=== PATIENT | female | born 1940 | race Caucasian/White ===

== ENCOUNTER 2016-12-29 09:34 | Observation (INO) | payer OTHER ==
[~2016-12-29] VITALS: Ht 152.4 cm; Wt 72.5 kg
[~2016-12-29 09:34] MED LIST: AMOX TR-K CLV1 EAC4 PO; CIPRO500 MG PO; NEXIUM40 MG PO; PRAVACHOL40 MG PO; PREDNISONE10 MG PO; PROBIOTIC1 EAC1 PO; PROVENTIL,2.5 MG/0.5 IH; SYNTHROID PO; TIROSINT75 MCG PO; ZOFRAN ODT4 MG PO
[2016-12-29 10:44] LABS: EOSINOPHIL (%) 2.5 % (0-5); EOSINOPHIL COUNT 0.1 K/uL (0-0.3); HEMATOCRIT 37.2 % (36.0-46.0); IMMATURE GRANULOCYTE (%) 0.4 % (0.0-0.7); INSTRUMENT ABS NEUTROPHIL CT 3.5 K/uL; LYMPHOCYTE COUNT 1.5 K/uL (1.0-2.8); MCHC 32.8 G/DL (30.0-36.0); MCV 94.7 FL (83-99); MEAN PLAT.VOLUME 10.1 uM^3 (9.5-12.4); MONOCYTE (%) 6.7 % (3-12); MONOCYTE COUNT 0.4 K/uL (0-0.8); NEUTROPHIL (%) 62.3 % (45-76); NEUTROPHIL COUNT 3.5 K/uL (1.8-6.4); PLATELET COUNT 197 K/uL (156-360); RBC DIS.WIDTH-CV 12.5 % (11.8-14.6); RBC DIS.WIDTH-SD 44.1 % (39-53); RED BLOOD COUNT 3.93 M/uL (3.80-5.20); WHITE BLOOD COUNT 5.6 K/uL (4.1-10.2)
[2016-12-29 10:52] LABS: CHLORIDE 111 mEq/L (99-109); POTASSIUM 3.9 mEq/L (3.7-5.4); SODIUM 141 mEq/L (136-147)
[2016-12-29 10:54] LABS: GLUCOSE 115 mg/dL (70-99)
[2016-12-29 10:55] LABS: ANION GAP 10 MEQ/L (2-14)
[2016-12-29 10:58] LABS: GFR ESTIMATE (CALCULATED) 57 mL/min/; UREA NITROGEN (BUN) 23 mg/dL (9-23)
[2016-12-29 11:06] LABS: TROP-I INTERPRETATION NEGATIVE; TROPONIN-I < 0.01 ng/mL (0.0-0.30)
[2016-12-29 13:32] LABS: TROP-I INTERPRETATION NEGATIVE; TROPONIN-I < 0.01 ng/mL (0.0-0.30)
[2016-12-29] MEDS ORDERED: LEVO-T100 MCG PO (15:56)
[2016-12-29] MEDS ORDERED: NEXIUM40 MG PO (15:56)
[2016-12-29] MEDS ORDERED: PRAVACHOL40 MG PO (15:56)
[2016-12-29] MEDS ORDERED: HYZAAR 100-11 TABLET PO (15:57)
[2016-12-29] MEDS ORDERED: PRESERVISION T1 EACH PO (15:58)
[2016-12-29] MEDS ORDERED: VITAMIN B122500 MCG PO (15:58)
[2016-12-29] MEDS ORDERED: VITAMIN D2000 UNI1 PO (15:59)
[2016-12-29 16:06] VITALS: BP 110/59
[2016-12-29] MEDS ORDERED: PROAIR HFA8.5 GM IH (16:06)
[2016-12-29 19:25] VITALS: BP 107/63
[2016-12-30 00:04] VITALS: BP 112/72
[2016-12-30 02:11] LABS: TROP-I INTERPRETATION NEGATIVE; TROPONIN-I < 0.01 ng/mL (0.0-0.30)
[2016-12-30 04:47] VITALS: BP 104/62
[2016-12-30 06:05] LABS: HEMATOCRIT 36.3 % (36.0-46.0); MCH 30.8 PG (29.0-34.0); MCHC 32.5 G/DL (30.0-36.0); MCV 94.8 FL (83-99); MEAN PLAT.VOLUME 10.5 uM^3 (9.5-12.4); PLATELET COUNT 188 K/uL (156-360); RBC DIS.WIDTH-CV 12.8 % (11.8-14.6); RED BLOOD COUNT 3.83 M/uL (3.80-5.20); WHITE BLOOD COUNT 5.4 K/uL (4.1-10.2)
[2016-12-30 06:27] LABS: ANION GAP 8 MEQ/L (2-14); CHLORIDE 109 MEQ/L (99-109); GFR ESTIMATE (CALCULATED) > 59 mL/min/; GLUCOSE 106 mg/dL (70-99); POTASSIUM 3.8 MEQ/L (3.7-5.4); SAMPLE HEMOLYSIS CHECK 0; SAMPLE ICTERIC CHECK 0; SAMPLE LIPEMIA CHECK 0; SODIUM 140 MEQ/L (136-147); UREA NITROGEN (BUN) 21 mg/dL (9-23)
[2016-12-30 08:23] VITALS: BP 127/73
[2016-12-30 11:27] VITALS: BP 106/77
== END 2016-12-30 16:00 | disposition home or self-care (01) ==
LOC: EME 09:34 → EDOF 14:57 → 5WEST 15:55
PROVIDERS: Emergency Medicine; Hospitalist; Internal Medicine
DX: R07.9 Chest pain, unspecified (principal); E78.5 Hyperlipidemia, unspecified; J45.909 Unspecified asthma, uncomplicated; I25.2 Old myocardial infarction; R42 Dizziness and giddiness; I10 Essential (primary) hypertension; Z96.651 Presence of right artificial knee joint; R00.1 Bradycardia, unspecified
CPT/HCPCS: 71010; 80048; 84484; 85025; 85027; 93005; 99281; 99285; G0378; J1650

== ENCOUNTER 2018-01-02 01:09 | Inpatient (IN) | payer OTHER ==
[~2018-01-02] VITALS: Ht 149.9 cm; Wt 68.4 kg
[~2018-01-02 01:09] MED LIST changes: +HYZAAR 100-11 TABLET PO; +LEVO-T100 MCG PO; +PRESERVISION T1 EACH PO; +PROAIR HFA8.5 GM IH; +VITAMIN B122500 MCG PO; +VITAMIN D2000 UNI1 PO
[2018-01-02 02:12] LABS: CHLORIDE 108 mEq/L (99-109); POTASSIUM 3.6 mEq/L (3.7-5.4); SODIUM 139 mEq/L (136-147)
[2018-01-02 02:14] LABS: GLUCOSE 134 mg/dL (70-99); TOTAL PROTEIN 6.4 g/dL (6.4-8.3)
[2018-01-02 02:16] LABS: TOTAL BILIRUBIN 0.8 mg/dL (0.0-1.0)
[2018-01-02 02:17] LABS: ALKALINE PHOSPHATASE 87 IU/L (3-129)
[2018-01-02 02:18] LABS: CREATININE 1.2 mg/dL (0.6-1.3); GFR ESTIMATE (CALCULATED) 46 mL/min/
[2018-01-02 02:19] LABS: AST (GOT) 168 IU/L (2-34); UREA NITROGEN (BUN) 37 mg/dL (9-23)
[2018-01-02 02:20] LABS: ALT (GPT) 69 IU/L (3-49)
[2018-01-02 02:21] LABS: LIPASE 36 U/L (1.0-51.0)
[2018-01-02 02:22] LABS: TROP-I INTERPRETATION NEGATIVE; TROPONIN-I < 0.01 ng/mL (0.0-0.30)
[2018-01-02 03:41] LABS: BASOPHIL (%) 0.5 % (0-1); EOSINOPHIL (%) 1.6 % (0-5); EOSINOPHIL COUNT 0.1 K/uL (0-0.3); HEMATOCRIT 36.5 % (36.0-46.0); HEMOGLOBIN 12.1 G/DL (11.9-15.5); IMMATURE GRANULOCYTE (%) 0.6 % (0.0-0.7); LYMPHOCYTE (%) 21.4 % (15-42); LYMPHOCYTE COUNT 1.4 K/uL (1.0-2.8); MCH 32.1 PG (29.0-34.0); MCHC 33.2 G/DL (30.0-36.0); MCV 96.8 FL (83-99); MONOCYTE (%) 6.8 % (3-12); MONOCYTE COUNT 0.4 K/uL (0-0.8); NEUTROPHIL (%) 69.1 % (45-76); NEUTROPHIL COUNT 4.4 K/uL (1.8-6.4); PLATELET COUNT 201 K/uL (156-360); RBC DIS.WIDTH-CV 13.1 % (11.8-14.6); RBC DIS.WIDTH-SD 46.5 % (39-53); RED BLOOD COUNT 3.77 M/uL (3.80-5.20); WHITE BLOOD COUNT 6.4 K/uL (4.1-10.2)
[2018-01-02 04:02] LABS: APPEARANCE CLEAR ((CLEAR)); BILIRUBIN NEGATIVE; BLOOD NEGATIVE; COLOR YELLOW ((YELLOW)); GLUCOSE (STRIP) NEGATIVE; KETONES NEGATIVE; LEUKOCYTES MODERATE; NITRITE NEGATIVE; PROTEIN (STRIP) NEGATIVE; SPECIFIC GRAVITY 1.011 (1.000-1.030); UROBILINOGEN 0.2 MG/DL (0.2-1.0)
[2018-01-02 04:08] LABS: BACTERIA 1+ /HPF; EPITHELIAL CELLS RARE /HPF; HYALINE CASTS 0-5 /LPF; MUCUS NONE SEEN /LPF; RED BLOOD CELLS 0-5 /HPF (0-5); UCUL ADDED? YES
[2018-01-02] MEDS ORDERED: FOSAMAX70 MG PO (07:39)
[2018-01-02] MEDS ORDERED: SYNTHROID75 MCG PO (07:39)
[2018-01-02] MEDS ORDERED: ERGOCALCIF50000 UNIT PO (07:39)
[2018-01-02] MEDS ORDERED: VITAMIN D-3 401 EACH PO (07:40)
[2018-01-02] MEDS ORDERED: ALEVE220 MG PO (07:40)
[2018-01-02] MEDS ORDERED: BENADRYL ALLERG25 MG PO (07:40)
[2018-01-02 09:37] LABS: ALBUMIN 3.6 g/dL (3.2-4.8); CHLORIDE 111 mEq/L (99-109); SODIUM 140 mEq/L (136-147)
[2018-01-02 09:38] LABS: POTASSIUM 4.5 mEq/L (3.7-5.4)
[2018-01-02 09:39] LABS: GLUCOSE 105 mg/dL (70-99); TOTAL PROTEIN 5.7 g/dL (6.4-8.3)
[2018-01-02 09:41] LABS: TOTAL BILIRUBIN 0.9 mg/dL (0.0-1.0)
[2018-01-02 09:43] LABS: ALKALINE PHOSPHATASE 96 IU/L (3-129); GFR ESTIMATE (CALCULATED) 57 mL/min/
[2018-01-02 09:44] LABS: UREA NITROGEN (BUN) 29 mg/dL (9-23)
[2018-01-02 09:45] LABS: AST (GOT) 169 IU/L (2-34)
[2018-01-02 09:46] LABS: ALT (GPT) 120 IU/L (3-49); TROP-I INTERPRETATION NEGATIVE; TROPONIN-I < 0.01 ng/mL (0.0-0.30)
[2018-01-02 12:38] LABS: TROP-I INTERPRETATION NEGATIVE; TROPONIN-I < 0.01 ng/mL (0.0-0.30)
[2018-01-02 15:51] VITALS: BP 113/60
[2018-01-02 16:02] LABS: BASOPHIL (%) 0.7 % (0-1); EOSINOPHIL (%) 3.4 % (0-5); EOSINOPHIL COUNT 0.1 K/uL (0-0.3); HEMATOCRIT 34.6 % (36.0-46.0); HEMOGLOBIN 11.2 G/DL (11.9-15.5); IMMATURE GRANULOCYTE (%) 0.2 % (0.0-0.7); LYMPHOCYTE (%) 33.5 % (15-42); LYMPHOCYTE COUNT 1.4 K/uL (1.0-2.8); MCH 31.7 PG (29.0-34.0); MCHC 32.4 G/DL (30.0-36.0); MONOCYTE (%) 11.4 % (3-12); MONOCYTE COUNT 0.5 K/uL (0-0.8); NEUTROPHIL (%) 50.8 % (45-76); NEUTROPHIL COUNT 2.1 K/uL (1.8-6.4); PLATELET COUNT 191 K/uL (156-360); RBC DIS.WIDTH-CV 13.2 % (11.8-14.6); RBC DIS.WIDTH-SD 47.1 % (39-53); RED BLOOD COUNT 3.53 M/uL (3.80-5.20); WHITE BLOOD COUNT 4.1 K/uL (4.1-10.2)
[2018-01-02 16:16] LABS: INTER. NORMALIZED RATIO 1.2
[2018-01-02 16:19] LABS: PTT 28.1 SEC (25-37)
[2018-01-02 16:22] LABS: TROP-I INTERPRETATION NEGATIVE; TROPONIN-I < 0.01 ng/mL (0.0-0.30)
[2018-01-02 16:24] LABS: CHLORIDE 111 MEQ/L (99-109); GFR ESTIMATE (CALCULATED) 57 mL/min/; GLUCOSE 90 mg/dL (70-99); SODIUM 140 MEQ/L (136-147); UREA NITROGEN (BUN) 27 mg/dL (9-23)
[2018-01-02 19:16] VITALS: BP 90/53
[2018-01-02 19:32] VITALS: BP 98/53
[2018-01-02 23:26] VITALS: BP 115/63
[2018-01-03 03:59] VITALS: BP 115/56
[2018-01-03 05:30] LABS: HEMATOCRIT 34.1 % (36.0-46.0); MCH 31.7 PG (29.0-34.0); MCHC 32.3 G/DL (30.0-36.0); MCV 98.3 FL (83-99); PLATELET COUNT 181 K/uL (156-360); RBC DIS.WIDTH-CV 13.2 % (11.8-14.6); RBC DIS.WIDTH-SD 47.1 % (39-53); RED BLOOD COUNT 3.47 M/uL (3.80-5.20); WHITE BLOOD COUNT 4.3 K/uL (4.1-10.2)
[2018-01-03 05:54] LABS: ALBUMIN 3.2 G/DL (3.2-4.8); ALKALINE PHOSPHATASE 67 IU/L (3-129); ALT (GPT) 65 IU/L (3-49); AST (GOT) 44 IU/L (2-34); CHLORIDE 109 MEQ/L (99-109); CREATININE 1.2 MG/DL (0.6-1.3); GFR ESTIMATE (CALCULATED) 46 mL/min/; GLUCOSE 98 mg/dL (70-99); POTASSIUM 4.4 MEQ/L (3.7-5.4); SODIUM 140 MEQ/L (136-147); TOTAL BILIRUBIN 0.7 MG/DL (0.0-1.0); TOTAL PROTEIN 5.5 G/DL (6.4-8.3); UREA NITROGEN (BUN) 24 mg/dL (9-23)
[2018-01-03 07:42] VITALS: BP 127/65
[2018-01-03 11:36] VITALS: BP 116/68
[2018-01-03 16:54] VITALS: BP 131/74
[2018-01-03 23:37] VITALS: BP 103/55
[2018-01-04 03:39] VITALS: BP 116/61
[2018-01-04 05:49] LABS: BASOPHIL (%) 0.8 % (0-1); EOSINOPHIL (%) 2.5 % (0-5); EOSINOPHIL COUNT 0.1 K/uL (0-0.3); HEMOGLOBIN 11.3 G/DL (11.9-15.5); IMMATURE GRANULOCYTE (%) 0.5 % (0.0-0.7); LYMPHOCYTE (%) 24.4 % (15-42); MCH 31.4 PG (29.0-34.0); MCHC 32.3 G/DL (30.0-36.0); MCV 97.2 FL (83-99); MONOCYTE (%) 9.9 % (3-12); MONOCYTE COUNT 0.4 K/uL (0-0.8); NEUTROPHIL (%) 61.9 % (45-76); NEUTROPHIL COUNT 2.4 K/uL (1.8-6.4); PLATELET COUNT 179 K/uL (156-360); RBC DIS.WIDTH-CV 12.9 % (11.8-14.6); RBC DIS.WIDTH-SD 46.6 % (39-53); WHITE BLOOD COUNT 3.9 K/uL (4.1-10.2)
[2018-01-04 06:27] LABS: ALBUMIN 3.5 G/DL (3.2-4.8); DIRECT BILIRUBIN 1.2 mg/dL (0.0-0.3); TOTAL PROTEIN 5.5 G/DL (6.4-8.3)
[2018-01-04 06:35] LABS: ALKALINE PHOSPHATASE 226 IU/L (3-129); ALT (GPT) 735 IU/L (3-49); AST (GOT) 826 IU/L (2-34); TOTAL BILIRUBIN 2.2 MG/DL (0.0-1.0)
[2018-01-04 09:38] VITALS: BP 118/56
[2018-01-04 09:53] LABS: CHLORIDE 106 MEQ/L (99-109); CREATININE 1.1 MG/DL (0.6-1.3); GFR ESTIMATE (CALCULATED) 51 mL/min/; GLUCOSE 116 mg/dL (70-99); POTASSIUM 4.3 MEQ/L (3.7-5.4); SODIUM 139 MEQ/L (136-147); UREA NITROGEN (BUN) 21 mg/dL (9-23)
[2018-01-04 11:44] VITALS: BP 127/71
[2018-01-04 15:43] VITALS: BP 142/58
[2018-01-04 18:50] VITALS: BP 124/62
[2018-01-04 23:02] VITALS: BP 126/62
[2018-01-05 03:34] VITALS: BP 124/61
[2018-01-05 05:19] LABS: HEMATOCRIT 32.9 % (36.0-46.0); HEMOGLOBIN 10.7 G/DL (11.9-15.5); MCHC 32.5 G/DL (30.0-36.0); MCV 98.5 FL (83-99); PLATELET COUNT 170 K/uL (156-360); RBC DIS.WIDTH-CV 13.2 % (11.8-14.6); RBC DIS.WIDTH-SD 46.9 % (39-53); RED BLOOD COUNT 3.34 M/uL (3.80-5.20)
[2018-01-05 06:01] LABS: ALBUMIN 3.4 G/DL (3.2-4.8); ALKALINE PHOSPHATASE 239 IU/L (3-129); ALT (GPT) 459 IU/L (3-49); CHLORIDE 111 MEQ/L (99-109); GFR ESTIMATE (CALCULATED) 57 mL/min/; GLUCOSE 95 mg/dL (70-99); MAGNESIUM 1.5 mg/dl (1.3-2.7); POTASSIUM 3.7 MEQ/L (3.7-5.4); SODIUM 142 MEQ/L (136-147); TOTAL PROTEIN 5.5 G/DL (6.4-8.3); UREA NITROGEN (BUN) 19 mg/dL (9-23)
[2018-01-05 06:03] LABS: AST (GOT) 292 IU/L (2-34); TOTAL BILIRUBIN 0.8 MG/DL (0.0-1.0)
[2018-01-05 07:43] VITALS: BP 99/55
[2018-01-05 11:27] LABS: HEPATITIS B SURFACE ANTIGEN Nonreactive; HEPATITIS C ANTIBODY Nonreactive
[2018-01-05 11:28] LABS: ANTI-HEPATITIS A VIRUS (IGM) Nonreactive
[2018-01-05 11:30] LABS: ANTI-HEPATITIS B CORE (IGM) Nonreactive
[2018-01-05 11:44] VITALS: BP 130/63
[2018-01-05 16:12] VITALS: BP 147/87
[2018-01-05 18:29] VITALS: BP 132/63
[2018-01-06] VITALS (7 sets, daily range): BP systolic 89–120; BP diastolic 48–61
[2018-01-06 09:38] LABS: BASOPHIL (%) 0.6 % (0-1); EOSINOPHIL COUNT 0.1 K/uL (0-0.3); HEMATOCRIT 35.1 % (36.0-46.0); HEMOGLOBIN 11.4 G/DL (11.9-15.5); IMMATURE GRANULOCYTE (%) 0.8 % (0.0-0.7); LYMPHOCYTE (%) 16.4 % (15-42); MCH 31.9 PG (29.0-34.0); MCHC 32.5 G/DL (30.0-36.0); MCV 98.3 FL (83-99); MONOCYTE COUNT 0.6 K/uL (0-0.8); NEUTROPHIL (%) 71.2 % (45-76); NEUTROPHIL COUNT 4.5 K/uL (1.8-6.4); PLATELET COUNT 174 K/uL (156-360); RBC DIS.WIDTH-SD 46.8 % (39-53); RED BLOOD COUNT 3.57 M/uL (3.80-5.20); WHITE BLOOD COUNT 6.3 K/uL (4.1-10.2)
[2018-01-06 10:11] LABS: ALBUMIN 3.7 G/DL (3.2-4.8); ALKALINE PHOSPHATASE 201 IU/L (3-129); ALT (GPT) 306 IU/L (3-49); CHLORIDE 108 MEQ/L (99-109); CREATININE 0.9 MG/DL (0.6-1.3); GFR ESTIMATE (CALCULATED) > 59 mL/min/; GLUCOSE 72 mg/dL (70-99); MAGNESIUM 1.5 mg/dl (1.3-2.7); POTASSIUM 3.7 MEQ/L (3.7-5.4); SODIUM 141 MEQ/L (136-147); TOTAL BILIRUBIN 0.8 MG/DL (0.0-1.0); TOTAL PROTEIN 5.7 G/DL (6.4-8.3); UREA NITROGEN (BUN) 16 mg/dL (9-23)
[2018-01-06 10:17] LABS: AST (GOT) 101 IU/L (2-34); DIRECT BILIRUBIN 0.2 mg/dL (0.0-0.3)
[2018-01-07 04:09] VITALS: BP 98/50
[2018-01-07 04:55] LABS: HEMATOCRIT 31.4 % (36.0-46.0); HEMOGLOBIN 10.5 G/DL (11.9-15.5); MCH 32.5 PG (29.0-34.0); MCHC 33.4 G/DL (30.0-36.0); MCV 97.2 FL (83-99); PLATELET COUNT 152 K/uL (156-360); RBC DIS.WIDTH-CV 13.1 % (11.8-14.6); RBC DIS.WIDTH-SD 46.7 % (39-53); RED BLOOD COUNT 3.23 M/uL (3.80-5.20); WHITE BLOOD COUNT 7.1 K/uL (4.1-10.2)
[2018-01-07 05:21] LABS: ALBUMIN 3.2 g/dL (3.2-4.8); CHLORIDE 111 mEq/L (99-109); POTASSIUM 3.8 mEq/L (3.7-5.4); SODIUM 138 mEq/L (136-147)
[2018-01-07 05:23] LABS: GLUCOSE 86 mg/dL (70-99)
[2018-01-07 05:24] LABS: TOTAL PROTEIN 5.4 g/dL (6.4-8.3)
[2018-01-07 05:27] LABS: CREATININE 0.9 mg/dL (0.6-1.3); GFR ESTIMATE (CALCULATED) > 59 mL/min/
[2018-01-07 05:28] LABS: UREA NITROGEN (BUN) 15 mg/dL (9-23)
[2018-01-07 05:31] LABS: LIPASE 30 U/L (1.0-51.0)
[2018-01-07 05:35] LABS: ALKALINE PHOSPHATASE 187 IU/L (3-129); ALT (GPT) 232 IU/L (3-49); AST (GOT) 62 IU/L (2-34)
[2018-01-07 07:33] VITALS: BP 133/57
[2018-01-07 11:17] VITALS: BP 103/66
[2018-01-07 16:46] VITALS: BP 108/72
[2018-01-07 19:15] VITALS: BP 123/60
[2018-01-08 00:13] VITALS: BP 114/58
[2018-01-08 04:22] VITALS: BP 121/58
[2018-01-08 05:18] LABS: HEMATOCRIT 31.9 % (36.0-46.0); HEMOGLOBIN 10.3 G/DL (11.9-15.5); MCH 31.4 PG (29.0-34.0); MCHC 32.3 G/DL (30.0-36.0); MCV 97.3 FL (83-99); PLATELET COUNT 148 K/uL (156-360); RBC DIS.WIDTH-CV 13.1 % (11.8-14.6); RBC DIS.WIDTH-SD 46.9 % (39-53); RED BLOOD COUNT 3.28 M/uL (3.80-5.20); WHITE BLOOD COUNT 6.5 K/uL (4.1-10.2)
[2018-01-08 05:58] LABS: ALBUMIN 3.1 G/DL (3.2-4.8); ALKALINE PHOSPHATASE 192 IU/L (3-129); ALT (GPT) 153 IU/L (3-49); CHLORIDE 111 MEQ/L (99-109); CREATININE 0.8 MG/DL (0.6-1.3); GFR ESTIMATE (CALCULATED) > 59 mL/min/; POTASSIUM 3.8 MEQ/L (3.7-5.4); SODIUM 138 MEQ/L (136-147); TOTAL PROTEIN 5.3 G/DL (6.4-8.3); UREA NITROGEN (BUN) 18 mg/dL (9-23)
[2018-01-08 06:03] LABS: AST (GOT) 46 IU/L (2-34); GLUCOSE 158 mg/dL (70-99); TOTAL BILIRUBIN 0.6 MG/DL (0.0-1.0)
[2018-01-08 07:00] VITALS: BP 126/60
[2018-01-08 16:33] VITALS: BP 128/59
[2018-01-08 19:45] VITALS: BP 107/56
[2018-01-09 00:10] VITALS: BP 112/59
[2018-01-09 03:10] VITALS: BP 105/53
[2018-01-09 05:43] LABS: HEMATOCRIT 28.5 % (36.0-46.0); HEMOGLOBIN 9.2 G/DL (11.9-15.5); MCH 31.6 PG (29.0-34.0); MCHC 32.3 G/DL (30.0-36.0); MCV 97.9 FL (83-99); PLATELET COUNT 174 K/uL (156-360); RBC DIS.WIDTH-CV 13.8 % (11.8-14.6); RBC DIS.WIDTH-SD 49.3 % (39-53); RED BLOOD COUNT 2.91 M/uL (3.80-5.20); WHITE BLOOD COUNT 9.4 K/uL (4.1-10.2)
[2018-01-09 06:04] LABS: ALBUMIN 2.2 G/DL (3.2-4.8); ALT (GPT) 112 IU/L (3-49); AST (GOT) 49 IU/L (2-34); DIRECT BILIRUBIN 0.1 mg/dL (0.0-0.3)
[2018-01-09 06:05] LABS: ALKALINE PHOSPHATASE 137 IU/L (3-129); TOTAL BILIRUBIN 0.3 MG/DL (0.0-1.0); TOTAL PROTEIN 4.2 G/DL (6.4-8.3)
[2018-01-09 07:37] LABS: CHLORIDE 114 MEQ/L (99-109); CREATININE 0.9 MG/DL (0.6-1.3); GFR ESTIMATE (CALCULATED) > 59 mL/min/; GLUCOSE 155 mg/dL (70-99); SODIUM 139 MEQ/L (136-147); UREA NITROGEN (BUN) 24 mg/dL (9-23)
[2018-01-09 07:49] VITALS: BP 127/56
[2018-01-09 11:45] VITALS: BP 102/52
[2018-01-09 18:30] VITALS: BP 105/58
[2018-01-09 20:09] VITALS: BP 108/55
[2018-01-10 00:44] VITALS: BP 108/57
[2018-01-10 07:14] LABS: HEMATOCRIT 31.6 % (36.0-46.0); HEMOGLOBIN 10.4 G/DL (11.9-15.5); MCHC 32.9 G/DL (30.0-36.0); MCV 97.2 FL (83-99); PLATELET COUNT 225 K/uL (156-360); RBC DIS.WIDTH-CV 14.2 % (11.8-14.6); RBC DIS.WIDTH-SD 50.5 % (39-53); RED BLOOD COUNT 3.25 M/uL (3.80-5.20); WHITE BLOOD COUNT 7.5 K/uL (4.1-10.2)
[2018-01-10 07:54] VITALS: BP 115/65
[2018-01-10 10:41] LABS: CHLORIDE 110 MEQ/L (99-109); CREATININE 0.9 MG/DL (0.6-1.3); GFR ESTIMATE (CALCULATED) > 59 mL/min/; GLUCOSE 141 mg/dL (70-99); SODIUM 139 MEQ/L (136-147); UREA NITROGEN (BUN) 26 mg/dL (9-23)
[2018-01-10 12:03] VITALS: BP 140/74
[2018-01-10 16:09] VITALS: BP 108/55
[2018-01-10 20:26] VITALS: BP 125/74
[2018-01-11 00:18] VITALS: BP 103/53
[2018-01-11 07:43] VITALS: BP 111/65
[2018-01-11 09:41] LABS: ALBUMIN 2.6 G/DL (3.2-4.8); CHLORIDE 109 MEQ/L (99-109); CREATININE 0.9 MG/DL (0.6-1.3); DIRECT BILIRUBIN 0.1 mg/dL (0.0-0.3); GFR ESTIMATE (CALCULATED) > 59 mL/min/; GLUCOSE 110 mg/dL (70-99); POTASSIUM 4.1 MEQ/L (3.7-5.4); SODIUM 138 MEQ/L (136-147); TOTAL PROTEIN 4.6 G/DL (6.4-8.3); UREA NITROGEN (BUN) 20 mg/dL (9-23)
[2018-01-11 09:42] LABS: ALKALINE PHOSPHATASE 448 IU/L (3-129); ALT (GPT) 449 IU/L (3-49); AST (GOT) 487 IU/L (2-34); TOTAL BILIRUBIN 0.7 MG/DL (0.0-1.0)
[2018-01-11 15:46] VITALS: BP 107/55
[2018-01-12 00:13] VITALS: BP 102/58
[2018-01-12 06:15] LABS: ALBUMIN 2.3 G/DL (3.2-4.8); ALKALINE PHOSPHATASE 402 IU/L (3-129); ALT (GPT) 388 IU/L (3-49); AST (GOT) 274 IU/L (2-34); DIRECT BILIRUBIN 0.3 mg/dL (0.0-0.3); TOTAL BILIRUBIN 0.6 MG/DL (0.0-1.0); TOTAL PROTEIN 4.5 G/DL (6.4-8.3)
[2018-01-12 08:33] VITALS: BP 106/70
[2018-01-12] MEDS ORDERED: ONDANSETRON ODT4 MG PO (11:04)
[2018-01-12] MEDS ORDERED: FENTANYL1 EAC5 TD (11:04)
== END 2018-01-12 15:00 | disposition home health service (06) | DRG 327 ==
LOC: EME 01:09 → EDOF 08:17 → 4SOUTH 08:17 → EDOF 08:17 → ENRESERV 08:19 → 4SOUTH 12:39 → ENRESERV 01-08 09:12 → 4SOUTH 01-08 09:14 → ENRESERV 01-08 10:06 → 2EAST 01-08 14:27
PROVIDERS: Emergency Medicine; Internal Medicine; Internal Medicine Gastroenterology; Physician Assistant; Physician Assistant Surgical; Specialist
PROC: 0DB68ZX Excision of Stomach, Via Natural or Artificial Opening Endoscopic, Diagnostic (ICD-10-PCS; principal; 2018-01-07)
PROC: 0DV44ZZ Restriction of Esophagogastric Junction, Percutaneous Endoscopic Approach (ICD-10-PCS; 2018-01-08)
PROC: 0DJ68ZZ Inspection of Stomach, Via Natural or Artificial Opening Endoscopic (ICD-10-PCS; 2018-01-08)
PROC: 0WQF0ZZ Repair Abdominal Wall, Open Approach (ICD-10-PCS; 2018-01-08)
PROC: 0BQT4ZZ Repair Diaphragm, Percutaneous Endoscopic Approach (ICD-10-PCS; 2018-01-08)
DX: K44.9 Diaphragmatic hernia without obstruction or gangrene (principal); N39.0 Urinary tract infection, site not specified; I69.351 Hemiplegia and hemiparesis following cerebral infarction affecting right dominant side; Z96.651 Presence of right artificial knee joint; I10 Essential (primary) hypertension; J45.909 Unspecified asthma, uncomplicated; K29.60 Other gastritis without bleeding; B96.20 Unspecified Escherichia coli [E. coli] as the cause of diseases classified elsewhere; R79.89 Other specified abnormal findings of blood chemistry; E78.5 Hyperlipidemia, unspecified; G89.29 Other chronic pain; E66.9 Obesity, unspecified; M54.9 Dorsalgia, unspecified; K21.9 Gastro-esophageal reflux disease without esophagitis; K42.9 Umbilical hernia without obstruction or gangrene; E03.9 Hypothyroidism, unspecified; M79.672 Pain in left foot; M79.671 Pain in right foot; R74.0 Nonspecific elevation of levels of transaminase and lactic acid dehydrogenase [LDH]; K86.89 Other specified diseases of pancreas; I49.3 Ventricular premature depolarization; Z91.018 Allergy to other foods; Z91.09 Other allergy status, other than to drugs and biological substances; Z82.49 Family history of ischemic heart disease and other diseases of the circulatory system; K31.7 Polyp of stomach and duodenum; Z79.899 Other long term (current) drug therapy; Z88.5 Allergy status to narcotic agent; Z90.49 Acquired absence of other specified parts of digestive tract; Z68.30 Body mass index [BMI] 30.0-30.9, adult; Z79.83 Long term (current) use of bisphosphonates
CPT/HCPCS: 71045; 71046; 74176; 74181; 74241; 80048; 80048 91; 80053; 80074; 80076; 81003; 83690; 83735; 84484; 85025; 85025 91; 85027; 85610; 85730; 87077; 87086; 87186; 88305; 88342 TC; 93005; 94640; 94799; 99281; 99285; C9113; G0378; J0131; J0330; J0610; J0690; J0696; J0780; J1100; J1170; J1644; J1940; J2405; J2710; J2920; J3010; J7030; J7050; J7643; S0028; S0074

== ENCOUNTER 2018-01-21 15:37 | Inpatient (IN) | payer OTHER ==
[~2018-01-21] VITALS: Ht 149.9 cm; Wt 71.4 kg
[~2018-01-21 15:37] MED LIST changes: +ALEVE220 MG PO; +BENADRYL ALLERG25 MG PO; +ERGOCALCIF50000 UNIT PO; +FENTANYL1 EAC5 TD; +FOSAMAX70 MG PO; +ONDANSETRON ODT4 MG PO; +SYNTHROID75 MCG PO; +VITAMIN D-3 401 EACH PO
[2018-01-21 16:27] LABS: BASOPHIL (%) 0.2 % (0-1); EOSINOPHIL (%) 0.2 % (0-5); HEMATOCRIT 31.2 % (36.0-46.0); HEMOGLOBIN 10.4 G/DL (11.9-15.5); IMMATURE GRANULOCYTE (%) 0.6 % (0.0-0.7); LYMPHOCYTE (%) 3.2 % (15-42); LYMPHOCYTE COUNT 0.5 K/uL (1.0-2.8); MCH 32.3 PG (29.0-34.0); MCHC 33.3 G/DL (30.0-36.0); MCV 96.9 FL (83-99); MONOCYTE (%) 2.3 % (3-12); MONOCYTE COUNT 0.4 K/uL (0-0.8); NEUTROPHIL (%) 93.5 % (45-76); NEUTROPHIL COUNT 15.3 K/uL (1.8-6.4); RBC DIS.WIDTH-CV 15.4 % (11.8-14.6); RBC DIS.WIDTH-SD 53.6 % (39-53); RED BLOOD COUNT 3.22 M/uL (3.80-5.20); WHITE BLOOD COUNT 16.3 K/uL (4.1-10.2)
[2018-01-21 16:30] LABS: PLATELET COUNT 295 K/uL (156-360)
[2018-01-21 16:36] LABS: CHLORIDE 104 mEq/L (99-109); POTASSIUM 3.4 mEq/L (3.7-5.4); SODIUM 138 mEq/L (136-147)
[2018-01-21 16:38] LABS: GLUCOSE 126 mg/dL (70-99)
[2018-01-21 16:42] LABS: GFR ESTIMATE (CALCULATED) 57 mL/min/
[2018-01-21 16:43] LABS: UREA NITROGEN (BUN) 11 mg/dL (9-23)
[2018-01-21 17:39] LABS: INTER. NORMALIZED RATIO 1.3
[2018-01-21 17:42] LABS: PTT 27.8 SEC (25-37)
[2018-01-21 17:45] LABS: MAGNESIUM 1.4 mg/dL (1.3-2.7)
[2018-01-21 17:52] LABS: APPEARANCE CLEAR ((CLEAR)); BILIRUBIN NEGATIVE; BLOOD NEGATIVE; COLOR YELLOW ((YELLOW)); GLUCOSE (STRIP) NEGATIVE; KETONES NEGATIVE; LEUKOCYTES NEGATIVE; NITRITE NEGATIVE; PROTEIN (STRIP) NEGATIVE; SPECIFIC GRAVITY 1.013 (1.000-1.030); UCUL ADDED? NO
[2018-01-21 17:53] LABS: LIPASE 183 U/L (1.0-51.0)
[2018-01-21 18:40] LABS: TROP-I INTERPRETATION NEGATIVE; TROPONIN-I < 0.01 ng/mL (0.0-0.30)
[2018-01-21 21:31] VITALS: BP 91/52
[2018-01-21 21:43] LABS: BASOPHIL (%) 0.2 % (0-1); EOSINOPHIL (%) 0.1 % (0-5); HEMATOCRIT 28.3 % (36.0-46.0); HEMOGLOBIN 9.2 G/DL (11.9-15.5); IMMATURE GRANULOCYTE (%) 0.7 % (0.0-0.7); LYMPHOCYTE COUNT 0.4 K/uL (1.0-2.8); MCH 31.5 PG (29.0-34.0); MCHC 32.5 G/DL (30.0-36.0); MCV 96.9 FL (83-99); MONOCYTE (%) 4.4 % (3-12); MONOCYTE COUNT 0.8 K/uL (0-0.8); NEUTROPHIL (%) 92.6 % (45-76); NEUTROPHIL COUNT 16.7 K/uL (1.8-6.4); PLATELET COUNT 276 K/uL (156-360); RBC DIS.WIDTH-CV 15.6 % (11.8-14.6); RBC DIS.WIDTH-SD 53.9 % (39-53); RED BLOOD COUNT 2.92 M/uL (3.80-5.20)
[2018-01-21 22:09] LABS: CHLORIDE 105 MEQ/L (99-109); GFR ESTIMATE (CALCULATED) 57 mL/min/; GLUCOSE 133 mg/dL (70-99); POTASSIUM 3.3 MEQ/L (3.7-5.4); SODIUM 138 MEQ/L (136-147); UREA NITROGEN (BUN) 13 mg/dL (9-23)
[2018-01-22 00:19] VITALS: BP 100/55
[2018-01-22 03:39] VITALS: BP 111/55
[2018-01-22 12:15] VITALS: BP 106/53
[2018-01-22 16:13] VITALS: BP 110/60
[2018-01-22 19:27] VITALS: BP 117/59
[2018-01-23 00:03] VITALS: BP 127/56
[2018-01-23 04:02] VITALS: BP 119/59
[2018-01-23 06:20] LABS: BASOPHIL (%) 0.6 % (0-1); EOSINOPHIL COUNT 0.1 K/uL (0-0.3); HEMATOCRIT 27.3 % (36.0-46.0); HEMOGLOBIN 8.7 G/DL (11.9-15.5); IMMATURE GRANULOCYTE (%) 0.5 % (0.0-0.7); LYMPHOCYTE (%) 9.1 % (15-42); LYMPHOCYTE COUNT 0.6 K/uL (1.0-2.8); MCH 32.1 PG (29.0-34.0); MCHC 31.9 G/DL (30.0-36.0); MCV 100.7 FL (83-99); MONOCYTE (%) 5.3 % (3-12); MONOCYTE COUNT 0.3 K/uL (0-0.8); NEUTROPHIL (%) 82.5 % (45-76); NEUTROPHIL COUNT 5.3 K/uL (1.8-6.4); PLATELET COUNT 200 K/uL (156-360); RBC DIS.WIDTH-CV 15.9 % (11.8-14.6); RBC DIS.WIDTH-SD 58.3 % (39-53); RED BLOOD COUNT 2.71 M/uL (3.80-5.20); WHITE BLOOD COUNT 6.4 K/uL (4.1-10.2)
[2018-01-23 06:50] LABS: CHLORIDE 108 MEQ/L (99-109); CREATININE 0.9 MG/DL (0.6-1.3); GFR ESTIMATE (CALCULATED) > 59 mL/min/; SODIUM 139 MEQ/L (136-147); UREA NITROGEN (BUN) 18 mg/dL (9-23)
[2018-01-23 06:51] LABS: GLUCOSE 93 mg/dL (70-99); POTASSIUM 4.3 MEQ/L (3.7-5.4)
[2018-01-23 07:18] VITALS: BP 119/59
[2018-01-23 11:20] VITALS: BP 103/58
[2018-01-23 15:07] VITALS: BP 107/58
[2018-01-23 20:14] VITALS: BP 116/57
[2018-01-24 00:11] VITALS: BP 125/57
[2018-01-24 03:36] VITALS: BP 159/76
[2018-01-24 05:42] LABS: BASOPHIL (%) 0.7 % (0-1); EOSINOPHIL (%) 1.1 % (0-5); EOSINOPHIL COUNT 0.1 K/uL (0-0.3); HEMATOCRIT 28.5 % (36.0-46.0); IMMATURE GRANULOCYTE (%) 0.7 % (0.0-0.7); LYMPHOCYTE (%) 11.5 % (15-42); LYMPHOCYTE COUNT 0.6 K/uL (1.0-2.8); MCH 31.3 PG (29.0-34.0); MCHC 31.6 G/DL (30.0-36.0); MONOCYTE (%) 7.5 % (3-12); MONOCYTE COUNT 0.4 K/uL (0-0.8); NEUTROPHIL (%) 78.5 % (45-76); NEUTROPHIL COUNT 4.3 K/uL (1.8-6.4); PLATELET COUNT 209 K/uL (156-360); RBC DIS.WIDTH-CV 15.2 % (11.8-14.6); RBC DIS.WIDTH-SD 55.3 % (39-53); RED BLOOD COUNT 2.88 M/uL (3.80-5.20); WHITE BLOOD COUNT 5.5 K/uL (4.1-10.2)
[2018-01-24 06:16] LABS: CHLORIDE 107 MEQ/L (99-109); CREATININE 0.9 MG/DL (0.6-1.3); GFR ESTIMATE (CALCULATED) > 59 mL/min/; GLUCOSE 110 mg/dL (70-99); POTASSIUM 4.1 MEQ/L (3.7-5.4); SODIUM 138 MEQ/L (136-147); UREA NITROGEN (BUN) 15 mg/dL (9-23)
[2018-01-24 07:44] VITALS: BP 167/89
[2018-01-24 10:57] LABS: ALBUMIN 3.1 G/DL (3.2-4.8); ALKALINE PHOSPHATASE 1068 IU/L (3-129); ALT (GPT) 146 IU/L (3-49); AST (GOT) 183 IU/L (2-34); LIPASE 42 U/L (1.0-51.0); TOTAL PROTEIN 5.4 G/DL (6.4-8.3)
[2018-01-24 11:09] LABS: DIRECT BILIRUBIN 2.2 mg/dL (0.0-0.3); TOTAL BILIRUBIN 3.3 MG/DL (0.0-1.0)
[2018-01-24 11:41] VITALS: BP 149/91
[2018-01-24 14:31] VITALS: BP 166/86
[2018-01-24 23:33] VITALS: BP 135/65
[2018-01-25 07:43] VITALS: BP 143/73
[2018-01-25 08:24] LABS: BASOPHIL (%) 0.3 % (0-1); EOSINOPHIL (%) 0 % (0-5); HEMATOCRIT 29.4 % (36.0-46.0); HEMOGLOBIN 9.3 G/DL (11.9-15.5); IMMATURE GRANULOCYTE (%) 0.9 % (0.0-0.7); LYMPHOCYTE (%) 10.6 % (15-42); LYMPHOCYTE COUNT 0.6 K/uL (1.0-2.8); MCHC 31.6 G/DL (30.0-36.0); MONOCYTE (%) 6.9 % (3-12); MONOCYTE COUNT 0.4 K/uL (0-0.8); NEUTROPHIL (%) 81.3 % (45-76); NEUTROPHIL COUNT 4.7 K/uL (1.8-6.4); PLATELET COUNT 222 K/uL (156-360); RBC DIS.WIDTH-CV 15.3 % (11.8-14.6); RBC DIS.WIDTH-SD 54.4 % (39-53); WHITE BLOOD COUNT 5.8 K/uL (4.1-10.2)
[2018-01-25 08:50] LABS: ALBUMIN 2.7 G/DL (3.2-4.8); ALT (GPT) 152 IU/L (3-49); AST (GOT) 181 IU/L (2-34); CHLORIDE 108 MEQ/L (99-109); CREATININE 0.9 MG/DL (0.6-1.3); GFR ESTIMATE (CALCULATED) > 59 mL/min/; GLUCOSE 112 mg/dL (70-99); MAGNESIUM 1.4 mg/dl (1.3-2.7); POTASSIUM 4.3 MEQ/L (3.7-5.4); SODIUM 140 MEQ/L (136-147); UREA NITROGEN (BUN) 13 mg/dL (9-23)
[2018-01-25 08:51] LABS: ALKALINE PHOSPHATASE 763 IU/L (3-129); TOTAL BILIRUBIN 4.5 MG/DL (0.0-1.0); TOTAL PROTEIN 4.5 G/DL (6.4-8.3)
[2018-01-25 15:54] VITALS: BP 107/54
[2018-01-25 23:50] VITALS: BP 138/67
[2018-01-26 06:12] LABS: ALBUMIN 2.6 G/DL (3.2-4.8); ALKALINE PHOSPHATASE 661 IU/L (3-129); ALT (GPT) 121 IU/L (3-49); AST (GOT) 110 IU/L (2-34); DIRECT BILIRUBIN 1.3 mg/dL (0.0-0.3); TOTAL PROTEIN 4.4 G/DL (6.4-8.3)
[2018-01-26 06:18] LABS: TOTAL BILIRUBIN 2.2 MG/DL (0.0-1.0)
[2018-01-26 07:07] VITALS: BP 138/67
[2018-01-26 15:18] VITALS: BP 146/85
[2018-01-27 00:11] VITALS: BP 147/67
[2018-01-27 06:47] LABS: ALBUMIN 2.6 G/DL (3.2-4.8); ALKALINE PHOSPHATASE 618 IU/L (3-129); ALT (GPT) 86 IU/L (3-49); TOTAL PROTEIN 4.5 G/DL (6.4-8.3)
[2018-01-27 06:50] LABS: AST (GOT) 53 IU/L (2-34); DIRECT BILIRUBIN 0.6 mg/dL (0.0-0.3); TOTAL BILIRUBIN 1.3 MG/DL (0.0-1.0)
[2018-01-27 07:19] VITALS: BP 134/65
[2018-01-27] MEDS ORDERED: AUGMENTIN875 MG PO (08:14)
== END 2018-01-27 12:46 | disposition home health service (06) | DRG 871 ==
LOC: EME 15:37 → 5SOUTH 19:56 → EDOF 19:56 → ENRESERV 19:59 → 5SOUTH 21:08
PROVIDERS: Emergency Medicine; Hospitalist; Internal Medicine; Internal Medicine Gastroenterology; Physician Assistant
DX: A41.51 Sepsis due to Escherichia coli [E. coli] (principal); K83.0 Cholangitis; J69.0 Pneumonitis due to inhalation of food and vomit; Y95 Nosocomial condition; K44.9 Diaphragmatic hernia without obstruction or gangrene; R60.0 Localized edema; I10 Essential (primary) hypertension; E03.9 Hypothyroidism, unspecified; D64.9 Anemia, unspecified; E78.00 Pure hypercholesterolemia, unspecified; J45.909 Unspecified asthma, uncomplicated; G89.29 Other chronic pain; M54.9 Dorsalgia, unspecified; E78.5 Hyperlipidemia, unspecified; K21.9 Gastro-esophageal reflux disease without esophagitis; I25.2 Old myocardial infarction; Z86.73 Personal history of transient ischemic attack (TIA), and cerebral infarction without residual deficits; Z90.49 Acquired absence of other specified parts of digestive tract; Z96.651 Presence of right artificial knee joint
CPT/HCPCS: 36415; 71045; 71046; 74176; 74181; 74328; 76705; 80048; 80048 91; 80053; 80076; 81003; 82977 GA; 83605; 83690; 83735; 84439; 84443; 84484; 85025; 85025 91; 85610; 85730; 87040; 87070; 87077; 87081; 87186; 87205; 87641; 87801; 88108; 88305; 92610 GN; 93005; 93970; 94799; 99281; 99285; C1757; C1769; J0295; J0330; J1170; J1626; J1644; J1885; J2405; J2543; J3010; J3370; J3475; J7030; J7040; J7050; S0028